=== PATIENT | female | born 1940 | race Caucasian/White ===

== ENCOUNTER 2024-06-26 19:45 | Emergency (ER) | payer MEDICARE, OTHER ==
[~2024-06-26] VITALS: Ht 149.9 cm; Wt 48.2 kg
[2024-06-26 19:50] VITALS: BP 107/60; PULSE 63; TEMP 98; O2SAT 98
[2024-06-26] MEDS ORDERED: HYDR-3964 PO (21:02)
[2024-06-26] MEDS: ibuprofen tablet 400 MG TABLET PO ONE (21:15)
[2024-06-26 21:25] VITALS: RESP 20
== END 2024-06-26 21:26 | disposition home or self-care (01) ==
LOC: ER 19:45
DX: S92.352A Displaced fracture of fifth metatarsal bone, left foot, initial encounter for closed fracture (principal); Z79.899 Other long term (current) drug therapy; X58.XXXA Exposure to other specified factors, initial encounter; Y93.89 Activity, other specified; Y92.89 Other specified places as the place of occurrence of the external cause; Y99.8 Other external cause status
CPT/HCPCS: 73610; 73630; 99284; L4360

== ENCOUNTER 2024-06-29 01:23 | Emergency (ER) | payer MEDICARE, OTHER ==
[~2024-06-29] VITALS: Ht 149.9 cm; Wt 52.7 kg
[~2024-06-29 01:23] MED LIST: HYDR-3964 PO
[2024-06-29 01:25] VITALS: TEMP 99.8
[2024-06-29 02:15] LABS: ALBUMIN 3.4 G/DL (3.4-5.0); ANION GAP 8 (8-16); BLOOD UREA NITROGEN 17 MG/DL (7-18); BUN/CREATININE RATIO 14.5 (10.0-20.0); CHLORIDE 100 MMOL/L (99-107); CREATININE 1.17 MG/DL (0.40-0.90); GLUCOSE 134 MG/DL (70-104); POTASSIUM 3.1 MMOL/L (3.5-5.1); PRO BRAIN NATRIURETIC PEPTIDE 266 PG/ML (0-450); SODIUM 138 MMOL/L (135-145); TOTAL CARBON DIOXIDE 29.6 MMOL/L (24-32); eCRCL 24 ML/MIN; eGFR 44 ML/MIN
[2024-06-29] MEDS: normal saline 1000ml 1,000 ML IV ONE (02:28)
[2024-06-29] MEDS: ondansetron/PF 4mg/2ml inj IV ONE (02:30)
[2024-06-29 02:41] LABS: BASOPHILS % (AUTO) 0.1 % (0-1); EOSINOPHILS % (AUTO) 0 % (0-6); HEMATOCRIT 38.7 % (35.0-45.0); HEMOGLOBIN 13.1 g/dl (12.0-16.0); LYMPHOCYTES # (AUTO) 0.3 X10'3 (1.1-4.8); LYMPHOCYTES % (AUTO) 2.1 % (21-51); MEAN CORPUSCULAR HEMOGLOBIN 31.7 PG (27.0-31.0); MEAN CORPUSCULAR HGB CONC 33.7 g/dL (33.0-36.5); MEAN CORPUSCULAR VOLUME 93.9 FL (78-98); MEAN PLATELET VOLUME 8.1 FL (7.4-10.4); MONOCYTES # (AUTO) 0.4 X10'3 (0-0.9); MONOCYTES % (AUTO) 2.8 % (2-12); NEUTROPHILS # (AUTO) 13.6 X10'3 (1.8-7.7); PLATELET COUNT 284 X10'3 (140-440); RED BLOOD COUNT 4.12 X10'6 (4.20-5.60); RED CELL DISTRIBUTION WIDTH 12.9 % (11.5-14.5); WHITE BLOOD COUNT 14.3 X10'3 (4.5-11.0)
[2024-06-29 03:45] LABS: BILIRUBIN,URINE NEGATIVE (Neg); CLARITY,URINE CLEAR (Clear); COLOR,URINE YELLOW (Yellow); GLUCOSE, URINE NEGATIVE (Neg); KETONES,URINE NEGATIVE (Neg); LEUKOCYTE ESTERASE ,URINE MODERATE (Neg); NITRITES, URINE NEGATIVE (Neg); OCCULT BLOOD,URINE SMALL (Neg); PROTEIN,URINE NEGATIVE (Neg); UROBILINOGEN,URINE 0.2 E.U/dL (0.2-1.0)
[2024-06-29 04:21] LABS: UA COLLECTION TYPE CLN CATCH MIDSTREAM
[2024-06-29 04:22] LABS: BACTERIA,URINE 1+ /HPF (Neg); WBC,URINE 20-30 /HPF (0-4)
[2024-06-29 04:23] LABS: MUCUS STRANDS FEW /LPF (Neg); RENAL CELLS, URINE FEW /HPF; SQUAMOUS EPITHELIAL CELL,UR FEW /LPF (FEW); TRANSITIONAL EPI CELLS,URINE FEW /HPF
[2024-06-29] MEDS: CefTRIAXone/D5W-Rocephin 1gm 50 ML IV ONE (04:52)
[2024-06-29] MEDS ORDERED: ONDA-243 PO (05:02)
[2024-06-29] MEDS ORDERED: CEPH-585 PO (05:02)
[2024-06-29] MEDS: potassium Cl 20 mEq SR tablet PO STA (05:12)
[2024-06-29] MEDS: POTASSIUM BICARB 20meq eff tab 20 MEQ TABLET.EFF PO ONE (05:28)
[2024-06-29 05:30] VITALS: BP 108/46; PULSE 86; RESP 13; O2SAT 95
== END 2024-06-29 05:43 | disposition home or self-care (01) ==
LOC: ER 01:23
DX: N39.0 Urinary tract infection, site not specified (principal); K29.70 Gastritis, unspecified, without bleeding; E87.6 Hypokalemia; Z20.822 Contact with and (suspected) exposure to COVID-19
CPT/HCPCS: 36415; 71045; 80048; 81001; 83880; 84145; 84484; 85025; 87088; 87502; 87503; 87811; 93005; 96361; 96365; 96375; 99285; J0696; J2405; J7030